=== PATIENT | female | born 1965 | race Hispanic/Latino ===

== ENCOUNTER 2017-11-23 13:09 | Emergency (ER) | payer BC ==
[2017-11-23 13:49] LABS: APPEARANCE,URINE CLEAR (CLEAR); BILIRUBIN,URINE NEGATIVE (NEGATIVE); COLOR,URINE YELLOW (YELLOW); GLUCOSE, URINE (UA) NEGATIVE (NEGATIVE); KETONES,URINE NEGATIVE (NEGATIVE); LEUKOCYTE ESTERASE ,URINE NEGATIVE (NEGATIVE); NITRATE,URINE NEGATIVE (NEGATIVE); OCCULT BLOOD,URINE NEGATIVE (NEGATIVE); PH,URINE 6.5 (5.0-8.0); PROTEIN,URINE NEGATIVE (NEGATIVE); UROBILINOGEN,URINE 0.2 mg/dL (0.2-1.0)
[2017-11-23 14:18] LABS: BASOPHILS % (AUTO) 0.9 % (0.0-5.0); EOSINOPHILS % (AUTO) 2.7 % (0.0-8.0); HEMATOCRIT 33.5 % (36-48); MEAN CORPUSCULAR HEMOGLOBIN 31.7 pg (27.0-33.0); MEAN CORPUSCULAR HGB CONC 36.7 g/dL (32.0-36.0); MEAN CORPUSCULAR VOLUME 86.5 fL (79-99); MONOCYTES % (AUTO) 8.8 % (3.0-13.0); NEUTROPHILS % (AUTO) 66.6 % (40.0-77.0); NUCLEATED RED BLOOD CELLS 0.1 % (0.0-0.19); PLATELET COUNT (AUTO) 266 K/uL (130-400); RED BLOOD CELL COUNT(AUTO) 3.88 MIL/uL (4.00-5.50); RED CELL DISTRIBUTION WIDTH 14.3 % (11.0-15.5); WHITE BLOOD COUNT (AUTO) 7.6 K/uL (4.8-10.8)
[2017-11-23 14:29] LABS: CREATININE 0.7 mg/dL (0.5-1.5); POTASSIUM 3.5 mmol/L (3.5-5.1)
[2017-11-23 14:33] LABS: INR 0.94 (0.85-1.15); PARTIAL THROMBOPLASTIN TIME 22.7 SEC (26.3-35.5); PROTHROMBIN TIME 9.7 SEC (9.6-11.6)
[2017-11-23 14:41] LABS: B-TYPE NATRIURETIC PEPTIDE 18 pg/mL (0-100)
[2017-11-23 14:42] LABS: ALBUMIN 3.9 g/dL (3.5-5.0); BILIRUBIN,TOTAL 0.4 mg/dL (0.2-1.0); TOTAL PROTEIN, SERUM 7.6 g/dL (6.0-8.3)
[2017-11-23] MEDS ORDERED: IOPAMIDOL-370 75 ML VIAL IV ONE (15:18)
[2017-11-23] MEDS ORDERED: ACETAMINOPHEN EXTRA STRENGTH 500 MG TABLET ONE (17:42)
[2017-11-23 18:21] LABS: T4 (THYROXINE) 6.9 mcg/dL (4.7-13.3); THYROID STIMULATING HORMONE 9.74 uIU/mL (0.36-3.74)
[2017-11-26 08:23] LABS: HEPATITIS A ANTIBODY IGM Negative (Negative); HEPATITIS B CORE IGM Negative (Negative); HEPATITIS Bs ANTIGEN SCREEN P Negative (Negative)
== END 2017-11-23 18:32 | disposition home or self-care (01) ==
LOC: EDH 13:09
DX: R10.11 Right upper quadrant pain (principal); R60.0 Localized edema; R51 Headache; E78.5 Hyperlipidemia, unspecified; Z98.51 Tubal ligation status
CPT/HCPCS: 36415; 71045; 74178; 80053; 80074; 81003; 82553; 83880; 84436; 84443; 84484; 85025; 85610; 85730; 93005; 99285; Q9967

== ENCOUNTER → 2018-04-30 | Outpatient (CLI) | payer BC | END | disposition home or self-care (01) | LOC: RAH 12:33 | PROVIDERS: ATTEND Family Medicine | DX: J84.10 Pulmonary fibrosis, unspecified (principal); R91.1 Solitary pulmonary nodule; I70.0 Atherosclerosis of aorta; E78.5 Hyperlipidemia, unspecified | CPT/HCPCS: 71250; 76856 ==

== ENCOUNTER 2019-06-16 06:51 | Day surgery (SDC) | payer BC ==
[2019-06-11 09:19] VITALS: BP 128/63
[2019-06-11 09:25] LABS: BASOPHILS % (AUTO) 1.2 % (0.0-5.0); EOSINOPHILS % (AUTO) 2.3 % (0.0-8.0); HEMATOCRIT 37.9 % (36-48); LYMPHOCYTES % (AUTO) 33.2 % (21.0-51.0); MEAN CORPUSCULAR HEMOGLOBIN 30.5 pg (27.0-33.0); MEAN CORPUSCULAR HGB CONC 34.7 g/dL (32.0-36.0); MONOCYTES % (AUTO) 6.7 % (3.0-13.0); NEUTROPHILS % (AUTO) 56.6 % (40.0-77.0); NUCLEATED RED BLOOD CELLS 0.1 % (0.0-0.19); PLATELET COUNT (AUTO) 270 K/uL (130-400); RED BLOOD CELL COUNT(AUTO) 4.31 MIL/uL (4.00-5.50); RED CELL DISTRIBUTION WIDTH 13.9 % (11.0-15.5); WHITE BLOOD COUNT (AUTO) 3.9 K/uL (4.8-10.8)
[2019-06-11 09:32] LABS: BILIRUBIN,DIRECT 0.1 mg/dL (0.0-0.3); BILIRUBIN,TOTAL 0.5 mg/dL (0.2-1.0); TOTAL PROTEIN, SERUM 7.7 g/dL (6.0-8.3)
[2019-06-16] VITALS (18 sets, daily range): BP systolic 125–152; BP diastolic 51–97
[~2019-06-16] VITALS: Ht 162.6 cm; Wt 78.0 kg
[~2019-06-16 06:51] MED LIST: BUTA1CAP53 PO; DICY20TA11 PO; ESOM40VI2 IV; LINA72CA PO; MELO-106 PO; ROSU5TAB12 PO
[2019-06-16] MEDS: LACTATED RINGERS 1000ML 1,000 ML IV SCH ×2 (07:34→08:47)
[2019-06-16] MEDS ORDERED: SCOPOLAMINE HYDROBROMIDE 1 EACH ADH..PATCH TD ONE (08:06)
[2019-06-16] MEDS ORDERED: ONDANSETRON HCL 4 MG/2 ML VIAL ONE ×2 (08:11→09:10)
[2019-06-16] MEDS ORDERED: LIDOCAINE PF 2% 5ML ABBOJECT ONE (08:11)
[2019-06-16] MEDS ORDERED: MIDAZOLAM HCL 1 MG/ML 2ML VIAL ONE (08:11)
[2019-06-16] MEDS ORDERED: DEXAMETHASONE SOD PHOSPHATE 10MG/ML 1ML VIAL ONE ×2 (08:11→08:51)
[2019-06-16] MEDS ORDERED: FENTANYL CITRATE PF 50 MCG/1 ML 2ML VIAL ONE ×2 (08:12→08:32)
[2019-06-16] MEDS ORDERED: ROCURONIUM 10MG/1ML SYR 10 MG/ML ML ONE (08:12)
[2019-06-16] MEDS ORDERED: PROPOFOL 10 MG/ML 20ML VIAL IV ONE (08:12)
[2019-06-16] MEDS ORDERED: HEPARIN SODIUM 1000UNIT/ML 10ML VIAL ONE (08:15)
[2019-06-16] MEDS ORDERED: GLYCOPYRROLATE 1 MG/5 ML SYRINGE ONE (08:52)
[2019-06-16] MEDS ORDERED: NEOSTIGMINE 5MG/5ML SYR IV ONE (08:52)
[2019-06-16] MEDS ORDERED: MEPERIDINE-PF 25 MG/ML SYG ONE ×2 (09:10→09:24)
[2019-06-16] MEDS ORDERED: MORPHINE SULFATE 2 MG/ML 1ML SYG ONE (09:47)
== END 2019-06-16 10:55 | disposition home or self-care (01) ==
LOC: DAH 06:51
PROVIDERS: ATTEND Surgery
DX: K82.8 Other specified diseases of gallbladder (principal); K81.1 Chronic cholecystitis; M79.7 Fibromyalgia; K21.9 Gastro-esophageal reflux disease without esophagitis; E03.9 Hypothyroidism, unspecified; G43.909 Migraine, unspecified, not intractable, without status migrainosus; E66.3 Overweight; Z85.3 Personal history of malignant neoplasm of breast; Z98.51 Tubal ligation status; Z82.49 Family history of ischemic heart disease and other diseases of the circulatory system; Z83.3 Family history of diabetes mellitus
CPT/HCPCS: 36415; 47562; 80076; 85025; 88305; A4215; A4221; A4222; A4223; A4450; A4663; A6260; C1769 ×4; J1100 ×2; J1644; J2001; J2175 ×2; J2250; J2405 ×2; J2704; J2710; J3010 ×2; J3490; J7030; J7120 ×2

== ENCOUNTER → 2021-02-02 | Outpatient (CLI) | payer SELFPAY ==
[~2021-02-02] MED LIST changes: -BUTA1CAP53 PO; -DICY20TA11 PO; -ESOM40VI2 IV; +FISH1CAP50 PO; -MELO-106 PO; +OMEP40CA21 PO; -ROSU5TAB12 PO
== END | disposition home or self-care (01) ==
LOC: OIH 13:47
PROVIDERS: ATTEND Family Medicine
DX: Z13.6 Encounter for screening for cardiovascular disorders (principal); Z82.49 Family history of ischemic heart disease and other diseases of the circulatory system
CPT/HCPCS: 75571

== ENCOUNTER 2022-02-13 12:46 | Emergency (ER) | payer OTHER ==
[~2022-02-13] VITALS: Ht 162.6 cm; Wt 74.4 kg
[2022-02-13 12:50] VITALS: BP 114/64
[2022-02-13] MEDS ORDERED: ONDANSETRON 4MG INJ IVP ONE (13:30)
[2022-02-13] MEDS ORDERED: 0.9%NACL 1000ML 1,000 ML IV ONE (13:30)
[2022-02-13] MEDS ORDERED: MORPHINE 4 MG SYG IVP ONE (13:30)
[2022-02-13 13:39] LABS: BASOPHILS % (AUTO) 0.8 % (0.0-5.0); EOSINOPHILS % (AUTO) 2.7 % (0.0-8.0); HEMATOCRIT 37.2 % (36-48); LYMPHOCYTES % (AUTO) 19.3 % (21.0-51.0); MEAN CORPUSCULAR HEMOGLOBIN 29.1 pg (27.0-33.0); MEAN CORPUSCULAR HGB CONC 33.3 g/dL (32.0-36.0); MEAN CORPUSCULAR VOLUME 87.3 fL (79-99); MONOCYTES % (AUTO) 12.1 % (3.0-13.0); NEUTROPHILS % (AUTO) 64.8 % (40.0-77.0); PLATELET COUNT (AUTO) 202 K/uL (130-400); RED BLOOD CELL COUNT(AUTO) 4.26 MIL/uL (4.00-5.50); RED CELL DISTRIBUTION WIDTH 13.4 % (11.0-15.5)
[2022-02-13 13:42] LABS: APPEARANCE,URINE CLEAR (CLEAR); BILIRUBIN,URINE NEGATIVE (NEGATIVE); COLOR,URINE YELLOW (YELLOW); GLUCOSE, URINE (UA) NEGATIVE (NEGATIVE); KETONES,URINE 5 mg/dL (NEGATIVE); LEUKOCYTE ESTERASE ,URINE NEGATIVE (NEGATIVE); NITRATE,URINE POSITIVE (NEGATIVE); OCCULT BLOOD,URINE NEGATIVE (NEGATIVE); PROTEIN,URINE NEGATIVE (NEGATIVE); UROBILINOGEN,URINE 0.2 mg/dL (0.2-1.0)
[2022-02-13 13:59] LABS: BACTERIA,URINE Rare /HPF (None Seen); RBC,URINE 0-1 /HPF (0-1); SQUAMOUS EPITHELIAL CELL,UR Few /HPF (0-2); WBC,URINE 0-1 /HPF (0-1)
[2022-02-13 13:59] LABS: ALBUMIN 3.8 g/dL (3.5-5.0); BILIRUBIN,TOTAL 0.4 mg/dL (0.2-1.0); POTASSIUM 3.9 mmol/L (3.5-5.1); TOTAL PROTEIN, SERUM 7.2 g/dL (6.0-8.3)
[2022-02-13 14:04] LABS: CREATININE 0.6 mg/dL (0.5-1.5)
[2022-02-13] MEDS ORDERED: IOHEXOL 350 MG/ML 100ML INFUS..BTL IV ONE (14:18)
[2022-02-13] MEDS ORDERED: BACI1CAP6 PO (15:02)
[2022-02-13] MEDS ORDERED: ONDA4TAB10 PO (15:02)
[2022-02-13] MEDS ORDERED: DICY20TA2 PO (15:02)
[2022-02-13] MEDS ORDERED: CEPH500B PO (15:02)
== END 2022-02-13 15:58 | disposition home or self-care (01) ==
LOC: EDH 12:46
DX: K52.9 Noninfective gastroenteritis and colitis, unspecified (principal); N39.0 Urinary tract infection, site not specified; K21.9 Gastro-esophageal reflux disease without esophagitis; E78.00 Pure hypercholesterolemia, unspecified; Z88.8 Allergy status to other drugs, medicaments and biological substances; Z91.040 Latex allergy status; Z79.899 Other long term (current) drug therapy; Z98.890 Other specified postprocedural states
CPT/HCPCS: 36415; 74177; 80053; 81001; 83690; 85025; 87088; 96374; 96375; 99285; J2270; J2405; J7030; Q9967

== ENCOUNTER 2022-05-13 16:25 | Emergency (ER) | payer OTHER ==
[~2022-05-13] VITALS: Ht 162.6 cm; Wt 74.4 kg
[~2022-05-13 16:25] MED LIST changes: +BACI1CAP6 PO; +CEPH500B PO; +DICY20TA2 PO; +ONDA4TAB10 PO
[2022-05-13 16:26] VITALS: BP 135/69
[2022-05-13] MEDS ORDERED: IBUPROFEN 800 MG TAB PO ONE (17:30)
[2022-05-13] MEDS ORDERED: CYCLOBENZAPRINE HCL 10 MG TABLET PO ONE (17:30)
[2022-05-13 18:42] LABS: APPEARANCE,URINE CLEAR (CLEAR); BILIRUBIN,URINE NEGATIVE (NEGATIVE); COLOR,URINE LIGHT-YELLOW (YELLOW); GLUCOSE, URINE (UA) NEGATIVE (NEGATIVE); KETONES,URINE NEGATIVE (NEGATIVE); LEUKOCYTE ESTERASE ,URINE NEGATIVE Leu/uL (NEGATIVE); NITRATE,URINE NEGATIVE (NEGATIVE); OCCULT BLOOD,URINE NEGATIVE (NEGATIVE); PH,URINE 6.5 (5.0-8.0); PROTEIN,URINE NEGATIVE (NEGATIVE); UROBILINOGEN,URINE 0.2 mg/dL (0.2-1.0)
[2022-05-13] MEDS ORDERED: MORPHINE 4 MG SYG IM PRN (19:00)
[2022-05-13] MEDS ORDERED: BACL20TA PO (19:02)
[2022-05-13] MEDS ORDERED: LIDOP TD (19:02)
[2022-05-13] MEDS ORDERED: GABA300C PO (19:02)
[2022-05-13] MEDS ORDERED: IBUP-1493 PO (19:02)
[2022-05-13] MEDS ORDERED: GABAPENTIN 300 MG CAPSULE PO SCH (19:30)
== END 2022-05-13 19:28 | disposition home or self-care (01) ==
LOC: EDH 16:25
DX: M54.41 Lumbago with sciatica, right side (principal); K21.9 Gastro-esophageal reflux disease without esophagitis; E78.00 Pure hypercholesterolemia, unspecified; Z79.1 Long term (current) use of non-steroidal anti-inflammatories (NSAID); Z79.899 Other long term (current) drug therapy; Z88.8 Allergy status to other drugs, medicaments and biological substances; Z90.49 Acquired absence of other specified parts of digestive tract
CPT/HCPCS: 99284; 81003; 72100; 96372; J2270

== ENCOUNTER 2024-02-07 16:32 | Emergency (ER) | payer BC, OTHER ==
[~2024-02-07] VITALS: Ht 162.6 cm; Wt 72.6 kg
[~2024-02-07 16:32] MED LIST changes: +BACL20TA PO; +GABA300C PO; +IBUP-1493 PO; +LIDOP TD; +ONDA-243 PO; -ONDA4TAB10 PO
[2024-02-07] MEDS: KETOROLAC 15MG/ML VIAL (15MG/ML) IV STA (17:06)
[2024-02-07] MEDS: DiphenhydrAMINE HCL 50 MG/ML VIAL IV STA (17:06)
[2024-02-07] MEDS: METOCLOPRAMIDE 10 MG/2 ML VIAL IVP STA (17:06)
[2024-02-07] MEDS: 0.9%NACL 1000ML 1,000 ML IV STA (17:07)
[2024-02-07] MEDS: MORPHINE 2 MG SYG IVP STA (17:47)
[2024-02-07 17:56] VITALS: BP 142/71; PULSE 84; RESP 16; O2SAT 98
== END 2024-02-07 18:21 | disposition home or self-care (01) ==
LOC: EDH 16:32
DX: G43.909 Migraine, unspecified, not intractable, without status migrainosus (principal); E78.00 Pure hypercholesterolemia, unspecified; K21.9 Gastro-esophageal reflux disease without esophagitis; Z79.899 Other long term (current) drug therapy; Z98.890 Other specified postprocedural states; Z90.49 Acquired absence of other specified parts of digestive tract; Z90.710 Acquired absence of both cervix and uterus; Z88.8 Allergy status to other drugs, medicaments and biological substances
CPT/HCPCS: 99284; 96374; 96375; 96361; J1200; J2270; J7030; J2765; J1885

== ENCOUNTER → 2024-06-08 | Outpatient (CLI) | payer OTHER | END | disposition home or self-care (01) | LOC: RAH 15:34 | PROVIDERS: ATTEND Internal Medicine Cardiovascular Disease | DX: Z13.6 Encounter for screening for cardiovascular disorders (principal) | CPT/HCPCS: 75571 ==